=== PATIENT | female | born 1990 | race American Indian/Alaskan Native ===

== ENCOUNTER 2019-01-29 05:39 | Emergency (ER) | payer SELFPAY ==
[2019-01-29 05:52] VITALS: BP 104/57
== END 2019-01-29 10:21 | disposition left against medical advice (07) ==
LOC: ED 05:39
DX: F41.9 Anxiety disorder, unspecified (principal); Z53.21 Procedure and treatment not carried out due to patient leaving prior to being seen by health care provider